=== PATIENT | female | born 1945 | race Hispanic/Latino ===

== ENCOUNTER 2020-04-28 08:51 | Observation (INO) | payer OTHER ==
[2020-04-26 14:57] LABS: EOSINOPHILS % (AUTO) 2.8 % (0.0-8.0); HEMATOCRIT 37.8 % (36-48); LYMPHOCYTES % (AUTO) 37.8 % (21.0-51.0); MEAN CORPUSCULAR HEMOGLOBIN 30.6 pg (27.0-33.0); MEAN CORPUSCULAR HGB CONC 33.1 g/dL (32.0-36.0); MEAN CORPUSCULAR VOLUME 92.6 fL (79-99); MONOCYTES % (AUTO) 8.5 % (3.0-13.0); NEUTROPHILS % (AUTO) 49.8 % (40.0-77.0); PLATELET COUNT (AUTO) 192 K/uL (130-400); RED BLOOD CELL COUNT(AUTO) 4.08 MIL/uL (4.00-5.50); WHITE BLOOD COUNT (AUTO) 7.8 K/uL (4.8-10.8)
[2020-04-26 15:11] LABS: CREATININE 1.5 mg/dL (0.5-1.5); INR 0.96 (0.85-1.15); PARTIAL THROMBOPLASTIN TIME 25.9 SEC (26.3-35.5); PROTHROMBIN TIME 10.4 SEC (9.6-11.6)
[2020-04-27 13:33] VITALS: BP 131/65
[2020-04-28] VITALS (12 sets, daily range): BP systolic 116–151; BP diastolic 69–88
[~2020-04-28] VITALS: Ht 177.8 cm; Wt 97.2 kg
[2020-04-28] MEDS: CEFAZOLIN SODIUM 1 GM VIAL IVP SCH ×2 (05:00→23:16)
[~2020-04-28 08:51] MED LIST: ASPI-449 PO; HYDR25TA PO; LOSA100T58 PO; MINO100C6 PO; MULT-1367 PO; PRAV10TA39 PO; VITAMIN D3 PO
[2020-04-28] MEDS ORDERED: SODIUM CHLORIDE 0.9% 1000ML 1,000 ML IV ONE (10:07)
[2020-04-28] MEDS ORDERED: MIDAZOLAM HCL 1 MG/ML 2ML VIAL ONE ×2 (15:08→16:07)
[2020-04-28] MEDS ORDERED: MEPERIDINE-PF 25 MG/ML SYG ONE ×2 (15:08→16:08)
[2020-04-28] MEDS ORDERED: BUPIVACAINE/PF 0.25% 30ML VIAL IJ ONE (15:08)
[2020-04-28] MEDS ORDERED: CEFAZOLIN SODIUM 1 GM VIAL ONE (15:08)
[2020-04-28] MEDS ORDERED: LIDOCAINE HCL 1% MDV 50ML VIAL ONE (15:09)
[2020-04-28] MEDS ORDERED: IOHEXOL-350 50ML VIAL IV ONE (16:19)
[2020-04-28] MEDS ORDERED: ACETAMINOPHEN-CODEINE 300/30MG TAB PO PRN ×2 (17:15→18:30)
--- NOTE | 2020-04-28 17:45 | NUR ---
PT RECEIVED FROM [employer] VIA [employer]RETCHER, AWAKE, ALERT AND ORIENTED. DENIES CHEST PAIN OR DISCOMFORT, PPM SITE INTACT, SLING IN PLACE. EDUCATED ON IMPORTANCE OF NOT ELEVATING LEFT ARM. CALL LIGHT WITHIN REACH. TELEMETRY MONITORING
--- NOTE | 2020-04-28 18:00 | NUR ---
PPM PPM SITE INTACT, NO DRAINAGE OR HEMATOMA, SLING IN PLACE, TELEMETRY MONITORING
--- NOTE | 2020-04-28 18:15 | NUR ---
PPM ASSESSMENT AWAKE AND ALERT, DENIES PAIN, PPM SITE INTACT, NO DRAINAGE OR HEMATOMA
--- NOTE | 2020-04-28 18:30 | NUR ---
PPM PT AWAKE AND ALERT, DENIES CHEST PAIN OR DISCOMFORT, NO SOB OR LABORED RESPIRATIONS. TELEMETRY MONITORING, CALL LIGHT WITHIN REACH.
--- NOTE | 2020-04-28 18:45 | NUR ---
PPM PT CONTINUES ON BEDREST, DENIES DISCOMFORT, NO SOB OR LABORED RESPIRATIONS. PPM SITE INTACT, NO DRAINAGE, NO HEMATOMA. SLING IN PLACE
--- NOTE | 2020-04-28 19:15 | NUR ---
AWAKE AND ORIENTED, DENIES DISCOMFORT, PPM SITE INTACT, NO DRAINAGE OR HEMATOMA, SLING IN PLACE. TELEMETRY MONITORING, CALL LIGHT WITHIN REACH.
[2020-04-28] MEDS: **HM**(Pravastatin Sodium 10 MG PO SCH (20:31)
[2020-04-29 04:00] VITALS: BP 140/87
[2020-04-29 05:27] LABS: BASOPHILS % (AUTO) 0.6 % (0.0-5.0); EOSINOPHILS % (AUTO) 2.4 % (0.0-8.0); HEMATOCRIT 38.8 % (36-48); LYMPHOCYTES % (AUTO) 25.7 % (21.0-51.0); MEAN CORPUSCULAR HEMOGLOBIN 30.8 pg (27.0-33.0); MEAN CORPUSCULAR HGB CONC 33.8 g/dL (32.0-36.0); MEAN CORPUSCULAR VOLUME 91.1 fL (79-99); MONOCYTES % (AUTO) 10.3 % (3.0-13.0); NEUTROPHILS % (AUTO) 60.7 % (40.0-77.0); PLATELET COUNT (AUTO) 194 K/uL (130-400); RED BLOOD CELL COUNT(AUTO) 4.26 MIL/uL (4.00-5.50); RED CELL DISTRIBUTION WIDTH 12.8 % (11.0-15.5); WHITE BLOOD COUNT (AUTO) 9.8 K/uL (4.8-10.8)
[2020-04-29 06:01] LABS: CREATININE 1.4 mg/dL (0.5-1.5); POTASSIUM 3.9 mmol/L (3.5-5.1)
[2020-04-29 08:00] VITALS: BP 140/79
[2020-04-29] MEDS: **HM**(Pravastatin Sodium 10 MG PO SCH (08:50)
--- NOTE | 2020-04-29 08:51 | NUR ---
PT TOOK HIS OWN MEDICATIONS
[2020-04-29] MEDS ORDERED: ASPIRIN 81 MG EC TAB PO SCH (09:00)
[2020-04-29] MEDS ORDERED: LOSARTAN 100 MG TABLET PO SCH (09:00)
[2020-04-29] MEDS ORDERED: HYDROCHLOROTHIAZIDE 25 MG TABLET PO SCH (09:00)
[2020-04-29] MEDS ORDERED: MINOCYCLINE HCL 50 MG CAP PO SCH (09:00)
--- NOTE | 2020-04-29 12:03 | NUR ---
DISCHARGE INSTRUCTIONS REVIEWED AND UNDERSTOOD BY PT. IV AND TELEMETRY REMOVED W/O DIFFICULTY OR COMPLICATION. PT DISMISSED BY W/C IN GOOD CONDITION ACCOMPANIED BY STAFF AND FAMILY
[2020-04-29 16:00] VITALS: BP 172/90
== END 2020-04-29 12:00 | disposition home or self-care (01) ==
LOC: DAH 08:51 → 4DH 08:52
PROVIDERS: ADMIT Internal Medicine; ATTEND Internal Medicine
DX: I45.3 Trifascicular block (principal); I44.1 Atrioventricular block, second degree; I47.1 Supraventricular tachycardia; I49.5 Sick sinus syndrome; Z95.0 Presence of cardiac pacemaker
CPT/HCPCS: 33208; 36415 ×2; 71045; 80048 ×2; 85025 ×2; 85610; 85730; 96360; 96361; A4215; A4216; A4221; A4222; A4223 ×3; A4606; A4663; C1785; C1898 ×2; G0378 ×17; J0690; J2175 ×2; J2250 ×2; J3490 ×2; J7030; Q9967; 99156; 99157